=== PATIENT | male | born 1990 | race Asian ===

== ENCOUNTER → 2017-07-12 | Outpatient (CLI) | payer OTHER | LOC: GIMAGING 08:16 | PROVIDERS: ATTEND Nurse Practitioner Acute Care | DX: S69.91XA Unspecified injury of right wrist, hand and finger(s), initial encounter (principal); V18.0XXA Pedal cycle driver injured in noncollision transport accident in nontraffic accident, initial encounter; Y93.55 Activity, bike riding | CPT/HCPCS: 73110-PO ==

== ENCOUNTER → 2018-09-16 | Outpatient (CLI) | payer OTHER | LOC: GIMAGING 08:29 | PROVIDERS: ATTEND Nurse Practitioner Family | DX: M25.512 Pain in left shoulder (principal); S43.102S Unspecified dislocation of left acromioclavicular joint, sequela | CPT/HCPCS: 73030-PO ==